=== PATIENT | male | born 1945 | race Caucasian/White ===

== ENCOUNTER 2017-11-15 06:10 | Emergency (ER) | payer BC, MEDICARE ==
[2017-11-15] MEDS: Sodium Chloride 0.9% 1,000 ML IV ONE ×2 (06:50→08:08)
[2017-11-15] MEDS ORDERED: Ketorolac 30 MG/ML SDV IVPUSH ONE (06:53)
[2017-11-15] MEDS ORDERED: Ondansetron 4 MG/2 ML SDV IVPUSH ONE (06:54)
[2017-11-15] MEDS ORDERED: Morphine 10 MG/ML Syringe IVPUSH ONE ×2 (06:58→08:53)
[2017-11-15] MEDS: Morphine 10 MG/ML Syringe IVPUSH ONE ×2 (07:20→08:48)
[2017-11-15] MEDS ORDERED: Morphine 2 MG/ML Syringe ONE ×4 (07:23→08:42)
[2017-11-15] MEDS: Morphine 2 MG/ML Syringe IVPUSH PRN ×2 (08:28→08:40)
[2017-11-15] MEDS ORDERED: Morphine 10 MG/ML SDV ONE (08:48)
[2017-11-15] MEDS ORDERED: HYDROmorphone 2 MG/ML Syringe IVPUSH ONE (08:56)
[2017-11-15] MEDS ORDERED: Acetaminophen/oxyCODONE 325-5 MG Tab PO ONE (09:22)
[2017-11-15] MEDS ORDERED: Acetaminophen/oxyCODONE 325-5 MG Tab ONE (09:28)
--- NOTE | 2017-11-15 09:45 | CT ---
DATE OF SERVICE: 11/15/17 CLINICAL DATA: flank pain. UNENHANCED ABDOMEN AND PELVIC CT: Multislice acquisition through the abdomen and pelvis without IV or oral contrast was performed. Comparison is made to prior unenhanced abdomen and pelvic CT dated 04/05/11. There are emphysematous changes noted in both lower lungs. There are atelectatic changes in the dependent portion of both lungs. There is a subtle ground glass opacity within the right lung base. Pneumonia/pneumonitis should be considered. No pleural effusions. The heart size is normal. No pericardial effusion. The liver is normal size. There is diffuse fatty infiltration of the liver. No focal hepatic lesions. The gallbladder appears normal. The spleen appears normal. The pancreas appears normal. The right and left adrenals appear normal. There is a 3 mm left ureteral calculi located in the left ureter at the L3 level. There is mild hydronephrosis and hydroureter proximal to it consistent with obstruction. There is also swelling of the left kidney and there is mild perinephric fat stranding on the left most likely related to obstruction. The right kidney and collecting system appears normal. The bladder is partially fluid-filled. It appears normal. No evidence of appendicitis. There is a moderate amount of stool noted throughout the colon. There is a small hiatal hernia. There is a small umbilical hernia containing fat. No free air. No free fluid. No dilated loops of bowel. No adenopathy. No aortic aneurysm. IMPRESSION: A 3 mm left ureteral calculi with obstruction. [id number] [facility] [place]
[2017-11-15 10:04] VITALS: BP 143/66
--- NOTE | 2017-11-16 09:09 | ER ---
HPI: A 72-year-old male, who comes in with his with complaints of left flank and abdominal pain that woke him up about 4 o'clock this morning. He states the pain is severe. He has vomited many times since onset. The patient denies any recent falls or injuries. He has not been sick recently. He states he felt fine yesterday. PAST MEDICAL HISTORY: Includes a history of renal stones 3 to 4 years ago. The patient states the pain was very similar to this. He has not been voiding, so he has not noticed any blood in his urine. OBJECTIVE: GENERAL APPEARANCE: The patient is awake and alert. He is uncomfortable and moving around on the exam table from the pain. VITAL SIGNS: Reviewed. Blood pressure 137/83, pulse is 76, respirations 16, O2 sats are 96%. Physical exam, the patient has significant tenderness involving the left flank and left side of the abdomen from the midback area radiating around almost to the inguinal area. Bowel sounds are present. SKIN: Warm and dry. LUNGS: Clear. CARDIAC: Heart sounds distinct without murmurs. The patient denying any chest pain or shortness of breath. INITIAL DIAGNOSIS: Flank pain, left side. TREATMENT PLAN: An IV was started. The patient was given Toradol 30 mg IV. This took the edge off of his pain, but he was still uncomfortable. This was followed with morphine, starting with 4 mg. We gave 4 mg twice, and this did provide moderate pain control for the patient. He states his pain was at 5 or 6 level, and he was able to relax fairly comfortably at this time. He was also given Zofran 4 mg IV. LABORATORY DATA: Labs done today include a CBC, which is normal. CMP is also unremarkable. Renal CT reveals nonobstructive renal stones measuring 1 to 3 mm, as well as an obstructive left ureter calculus that is 3 to 4 mm in size, that is causing mild left-sided hydronephrosis and hydroureter. DIAGNOSIS: Renal stones. TREATMENT PLAN: The patient's pain kept flaring up. We gave him additional morphine for a total of 16 mg. It did not seem to be really controlling his pain well. We then switched to Dilaudid. He got 2 mg of Dilaudid. This brought his pain down to about a 4, and he was resting quietly again. I did consult with Dr. Gaytan with the following treatment plan. If we can control the patient's pain, we will give this a couple of days to see if he can pass the stone; it is small enough that he should be able to pass it, and he needs to push fluids. At this point, we gave the patient Percocet 5/325, and I monitored him for about an hour at which point, he was resting quietly. He rates his pain about a 2 or 3 at this time and states he feels comfortable. He will be discharged home with more Percocet tablets 5/325. He is to take 1 or 2 tablets every 6 hours as needed. He is to push fluids. An appointment for recheck was set up with him on Monday in the clinic with Dr. Gaytan. I advised patient that if his condition should get worse, he is to come back to the emergency room sooner. The patient has no further questions. CRS/MODL /[id number]
== END 2017-11-15 10:50 | disposition home or self-care (01) ==
LOC: LB.ED 06:10
DX: N13.2 Hydronephrosis with renal and ureteral calculous obstruction (principal)
CPT/HCPCS: 74176; 80053; 85025; 96361; 96374; 96375; 96376; 99283; A9270; J1170; J1885; J2270; J2405; J7030

== ENCOUNTER 2017-12-07 11:39 | Day surgery (SDC) | payer BC, MEDICARE ==
[~2017-12-07 11:39] MED LIST: Metoclopramide 10 MG/2 ML SDV IV PRN; Sodium Chloride 0.9% 1,000 ML IV SCH; Sodium Chloride 0.9% 10 ML Syringe FLUSH PRN
[2017-12-07] MEDS ORDERED: Glycopyrrolate 0.2 MG/ML 2 ML SDV ONE (14:10)
[2017-12-07] MEDS ORDERED: Midazolam 1 MG/ML 5 ML SDV ONE (14:10)
[2017-12-07] MEDS ORDERED: Propofol 1,000 MG/100 ML SDV ONE (14:10)
[2017-12-07 17:03] VITALS: BP 146/66
--- NOTE | 2017-12-07 20:54 | OR ---
DATE OF OPERATION: 12/07/2017 PREOPERATIVE DIAGNOSIS: Screening colonoscopy. POSTOPERATIVE DIAGNOSIS: Screening colonoscopy. PROCEDURE: Colonoscopy with polypectomy. ANESTHESIA: MAC. ESTIMATED BLOOD LOSS: Minimal. COMPLICATIONS: None. INDICATIONS FOR THE PROCEDURE: The patient is a 72-year-old male, here today for a screening colonoscopy. Last colonoscopy was about 10 years ago, normal per patient. Denies any change in bowel habits since that time. DESCRIPTION OF PROCEDURE: Informed consent was obtained from the patient. The patient was taken to the operating room and placed on the table in left lateral decubitus position. Monitored anesthesia care was administered. Digital rectal exam was performed and was normal. Colonoscope was then advanced through the anus and directed toward the cecum. Cecum was identified by appendiceal orifice as well as ileocecal valve. Colonoscope was then slowly withdrawn. The patient did have a small sessile polyp in the ascending colon, this was removed with hot biopsy polypectomy. Remainder of the colon was unremarkable. No additional polyps. No masses. No areas of ischemia or inflammation. No AV malformations. Retroflexion was performed in the rectum which was also unremarkable. Colonoscope was then withdrawn. FINDINGS: Ascending colon polyp, otherwise normal. RECOMMENDATIONS: We will follow up on pathology results. Otherwise, would recommend repeat screening colonoscopy in 5 years due to finding of polyp. TOMASZ/ELEANOR /[id number]
== END 2017-12-07 15:25 | disposition home or self-care (01) ==
LOC: LB.SDS 11:39
PROVIDERS: ATTEND Surgery
DX: Z12.11 Encounter for screening for malignant neoplasm of colon (principal); D12.2 Benign neoplasm of ascending colon
CPT/HCPCS: 88305; J2250; J2704; J3490; J7030

== ENCOUNTER 2019-12-16 12:22 | Emergency (ER) | payer BC, OTHER ==
[2019-12-16] MEDS: Nitroglycerin 0.4 MG Tab.SL SL PRN ×3 (13:14→13:30)
[2019-12-16] MEDS ORDERED: Aspirin 81 MG Tab.Chew PO ONE (13:15)
[2019-12-16] MEDS ORDERED: Sodium Chloride 0.9% 10 ML Syringe FLUSH PRN (13:15)
[2019-12-16] MEDS: Morphine 4 MG/ML VIAL IVPUSH ONE ×2 (13:32→13:53)
[2019-12-16] MEDS: Morphine 10 MG/ML SDV ONE ×2 (13:32→14:34)
[2019-12-16] MEDS ORDERED: Heparin Sodium 5,000 UNITS/0.5 ML Syringe IVPUSH ONE (13:47)
[2019-12-16] MEDS ORDERED: Nitroglycerin/D5W 25 MG/250 ML BOTTLE IV SCH (14:00)
[2019-12-16] MEDS ORDERED: Heparin Sodium/D5W 25,000 UNITS/500 ML BAG IV SCH (14:00)
[2019-12-16 14:15] VITALS: PULSE 66
--- NOTE | 2019-12-16 14:28 | EDM.PDOC ---
ED HPI GENERAL MEDICAL PROBLEM - General Chief Complaint: Chest Pain Stated Complaint: LEFT CHEST PAIN Time Seen by Provider: 12/16/19 13:11 Source of Information: Reports: Patient History Limitations: Reports: No Limitations - History of Present Illness INITIAL COMMENTS - FREE TEXT/NARRATIVE: patient developer left sided chest pain at around 1200 today after moving bags of salt. The pain has been continous in his left chest. THe pain radiates down his left side, ribs, back, neck. The pain is reproducable with palpation to left side of body. PMH HTN. Onset: Today Onset Date: 12/16/19 Onset Time: 12:00 Location: Reports: Chest, Radiates to (left side, ribs, back, neck) Quality: Reports: Ache, Sharp, Stabbing Severity: Moderate Improves with: Reports: None Worsens with: Reports: None Associated Symptoms: Reports: Diaphoresis - Related Data Allergies Allergy/AdvReac Type Severity Reaction Status Date / Time No Known Allergies Allergy Verified 12/07/17 12:01 Home Meds: Home Meds Aspirin 81 mg PO DAILY 04/02/15 [History] Calcium Carbonate [Calcium] 500 mg PO DAILY 04/02/15 [History] Multivitamin [Multivitamins] 1 each PO DAILY 04/02/15 [History] lisinopriL [Prinivil] 10 mg PO DAILY 04/02/15 [History] Past Medical History Cardiovascular History: Reports: Hypertension Genitourinary History: Reports: Renal Calculus, Other (See Below) Other Genitourinary History: past hx kidney stones Musculoskeletal History: Reports: Arthritis, Other (See Below) Other Musculoskeletal History: Neck FX - Infectious Disease History Infectious Disease History: Reports: Chicken Pox, Mumps - Past Surgical History Male Surgical History: Reports: None Musculoskeletal Surgical History: Reports: Knee Replacement Other Musculoskeletal Surgeries/Procedures:: broken neck Social & Family History - Family History Family Medical History: Noncontributory - Caffeine Use Caffeine Use: Reports: Coffee Caffeine Use Comment: 10-12 CUPS COFFEE DAILY ED ROS GENERAL - Review of Systems Review Of Systems: See Below Constitutional: Reports: No Symptoms HEENT: Reports: No Symptoms Respiratory: Reports: No Symptoms Cardiovascular: Reports: Chest Pain. Denies: Blood Pressure Problem, Edema, Orthopnea Endocrine: Reports: No Symptoms GI/Abdominal: Reports: No Symptoms : Reports: No Symptoms Musculoskeletal: Reports: Shoulder Pain, Back Pain Skin: Reports: No Symptoms Neurological: Reports: No Symptoms Psychiatric: Reports: Anxiety Hematologic/Lymphatic: Reports: No Symptoms Immunologic: Reports: No Symptoms ED EXAM, GENERAL - Physical Exam Exam: See Below Exam Limited By: No Limitations General Appearance: Alert, Anxious Ears: Normal External Exam Nose: Normal Inspection Throat/Mouth: Normal Inspection, Normal Voice, No Airway Compromise Head: Atraumatic Neck: Normal Inspection, Other (pain with touching left side) Respiratory/Chest: No Respiratory Distress, Lungs Clear, Normal Breath Sounds Cardiovascular: Normal Peripheral Pulses, Regular Rate, Rhythm, No Edema, No JVD, No Murmur Peripheral Pulses: 3+: Carotid (L), Carotid (R), Radial (L), Radial (R), Dorsalis Pedis (L), Dorsalis Pedis (R) GI/Abdominal: Normal Bowel Sounds, Soft Extremities: Normal Inspection, Normal Capillary Refill, Arm Pain (left arm pain) Neurological: Alert, Oriented, Normal Cognition, No Motor/Sensory Deficits Psychiatric: Normal Affect, Normal Mood Skin Exam: Warm, Intact, Diaphoretic Course - Vital Signs Last Recorded V/S: Last Vital Signs Temp 99.4 F 12/16/19 13:12 Pulse 66 12/16/19 14:00 Resp 16 12/16/19 14:00 BP 120/58 L 12/16/19 14:00 Pulse Ox 100 12/16/19 14:00 - Orders/Labs/Meds Orders: Active Orders 24 hr Category Date Time Status Cardiac Monitoring [RC] .As Directed Care 12/16/19 13:16 Active EKG Documentation Completion [RC] ASDIRECTED Care 12/16/19 13:17 Active EKG Documentation Completion [RC] ASDIRECTED Care 12/16/19 14:18 Active Chest 1V Frontal [CR] Stat Exams 12/16/19 13:17 Taken INR,PT,PROTHROMBIN TIME [COAG] Stat Lab 12/16/19 13:49 Ordered PTT,PARTIAL THROMBOPLSTIN TIME [COAG] Stat Lab 12/16/19 13:49 Ordered Heparin Sodium/D5W [Heparin 25,000 Units in D5W 500 ML] Med 12/16/19 14:00 Active 25,000 units in 500 ml IV TITRATE Nitroglycerin [Nitrostat] Med 12/16/19 13:15 Active 0.4 mg SL Q5M PRN Nitroglycerin/D5W [Nitroglycerin 25 MG/D5W 250 ML] Med 12/16/19 14:00 Active 25 mg in 250 ml IV TITRATE Sodium Chloride 0.9% [Saline Flush] Med 12/16/19 13:15 Active 10 ml FLUSH ASDIRECTED PRN Peripheral IV Insertion Adult [OM.PC] Stat Oth 12/16/19 13:15 Ordered EKG 12 Lead [EK] Routine Ther 12/16/19 14:18 Ordered Medication Orders Heparin Sodium/Dextrose (Heparin 25,000 Units In D5w 500 Ml) 25,000 units in 500 mls @ 10.32 mls/hr IV TITRATE OSVALDO; Protocol Nitroglycerin/Dextrose (Nitroglycerin 25 Mg/D5w 250 Ml) 25 mg in 250 mls @ 3 mls/hr IV TITRATE OSVALDO; Protocol Nitroglycerin (Nitrostat) 0.4 mg SL Q5M PRN PRN Reason: Chest Pain Stop: 12/17/19 13:16 Sodium Chloride (Saline Flush) 10 ml FLUSH ASDIRECTED PRN PRN Reason: Keep Vein Open Labs: Laboratory Tests 12/16/19 12/16/19 12/16/19 Range/Units 13:22 13:22 13:40 WBC 8.3 (4.0-11.0) K/uL RBC 5.09 (4.50-6.50) M/uL Hgb 15.2 (13.0-18.0) g/dL Hct 44.0 (40.0-54.0) % MCV 86 (76-96) fL MCH 29.9 (27.0-32.0) pg MCHC 34.5 (31.0-35.0) g/dL RDW 13.4 (11.0-16.0) % Plt Count 234 (150-400) K/uL MPV 9.7 (6.0-10.0) fL Neut % (Auto) 45.5 (45.0-70.0) % Lymph % (Auto) 44.7 H (20.0-40.0) % [place] % (Auto) 6.1 (3.0-10.0) % Eos % (Auto) 3.1 (1.0-5.0) % Baso % (Auto) 0.6 H (0.0-0.5) % Neut # (Auto) 3.79 (2.00-7.50) K/uL Lymph # (Auto) 3.73 (1.50-4.00) K/uL [place] # (Auto) 0.51 (0.20-0.80) K/uL Eos # (Auto) 0.26 (0.04-0.40) K/uL Baso # (Auto) 0.05 (0.02-0.10) K/uL Sodium 141 (136-145) mmol/L Potassium 4.0 (3.5-5.1) mmol/L Chloride 105 (98-107) mmol/L Carbon Dioxide 25.0 (21.0-32.0) mmol/L Anion Gap 15.0 (5.0-15.0) mmol/L BUN 15 (8-26) mg/dL Creatinine 0.99 (0.70-1.30) mg/dL Est Cr Clr Drug Dosing TNP Estimated GFR (MDRD) > 60 (>60) MLS/MIN BUN/Creatinine Ratio 15.2 (6-25) Glucose 144 H (74-100) mg/dL Calcium 8.9 (8.5-10.1) mg/dL Total Bilirubin 0.3 (0.0-1.0) mg/dL AST 20 (15-37) U/L ALT 40 (12-78) U/L Alkaline Phosphatase 81 (46-116) U/L Troponin I < 0.017 (0.000-0.060) ng/mL Total Protein 7.6 (6.4-8.2) g/dL Albumin 4.3 (3.4-5.0) g/dL Globulin 3.3 (2.2-4.2) g/dL Albumin/Globulin Ratio 1.3 (0.8-2.0) COVID-19 (FAITH) Negative Meds: Medications Generic Name Dose Route Start Last Admin Trade Name Freq PRN Reason Stop Dose Admin Heparin Sodium/Dextrose 25,000 units in 500 mls @ 10.32 mls/hr 12/16/19 14:00 Heparin 25,000 Units In D5w 500 Ml IV TITRATE OSVALDO Protocol 6 UNITS/KG/HR Nitroglycerin/Dextrose 25 mg in 250 mls @ 3 mls/hr 12/16/19 14:00 Nitroglycerin 25 Mg/D5w 250 Ml IV TITRATE OSVALDO Protocol 5 MCG/MIN Nitroglycerin 0.4 mg 12/16/19 13:15 Nitrostat SL 12/17/19 13:16 Q5M PRN Chest Pain Sodium Chloride 10 ml 12/16/19 13:15 Saline Flush FLUSH ASDIRECTED PRN Keep Vein Open Discontinued Medications Generic Name Dose Route Start Last Admin Trade Name Freq PRN Reason Stop Dose Admin Aspirin 324 mg 12/16/19 13:15 Aspirin PO 12/16/19 13:16 ONETIME ONE Heparin Sodium (Porcine) 4,000 units 12/16/19 13:47 Heparin Sodium IVPUSH 12/16/19 13:48 ONETIME ONE Morphine Sulfate Confirm 12/16/19 13:34 Morphine Administered 12/16/19 13:35 Dose 10 mg .ROUTE .STK-MED ONE Morphine Sulfate 4 mg 12/16/19 14:18 Morphine IVPUSH 12/16/19 14:19 ONETIME ONE Departure - Departure Time of Disposition: 14:34 Disposition: DC/[facility]fer to [facility] 02 Reason for Transfer *Q: Primary PCI Indicated Condition: Fair Clinical Impression: Acute coronary syndrome Chest pain Qualifiers: Chest pain type: unspecified Qualified Code(s): R07.9 - Chest pain, unspecified Instructions: Nonspecific Chest Pain, Adult Referrals: PCP,None [Primary Care Provider] - Forms: ED Department Discharge, [facility] Sepsis Event Note (ED) - Focused Exam Vital Signs: Vital Signs Temp Pulse Resp BP Pulse Ox 12/16/19 14:00 66 16 120/58 L 100 12/16/19 13:45 72 18 110/63 100 12/16/19 13:40 73 22 H 128/70 98 12/16/19 13:30 83 20 116/57 L 96 12/16/19 13:25 97 16 114/53 L 97 12/16/19 13:20 76 16 129/60 96 12/16/19 13:16 70 18 138/71 99 12/16/19 13:12 99.4 F 87 20 129/102 H 97 - My Orders Last 24 Hours: My Active Orders 12/16/19 13:15 Nitroglycerin [Nitrostat] 0.4 mg SL Q5M PRN Sodium Chloride 0.9% [Saline Flush] 10 ml FLUSH ASDIRECTED PRN Peripheral IV Insertion Adult [OM.PC] Stat 12/16/19 13:16 Cardiac Monitoring [RC] .As Directed 12/16/19 13:17 EKG Documentation Completion [RC] ASDIRECTED Chest 1V Frontal [CR] Stat 12/16/19 13:49 INR,PT,PROTHROMBIN TIME [COAG] Stat PTT,PARTIAL THROMBOPLSTIN TIME [COAG] Stat 12/16/19 14:00 Heparin Sodium/D5W [Heparin 25,000 Units in D5W 500 ML] 25,000 units in 500 ml IV TITRATE Nitroglycerin/D5W [Nitroglycerin 25 MG/D5W 250 ML] 25 mg in 250 ml IV TITRATE 12/16/19 14:18 EKG Documentation Completion [RC] ASDIRECTED EKG 12 Lead [EK] Routine - Assessment/Plan Last 24 Hours: My Active Orders 12/16/19 13:15 Nitroglycerin [Nitrostat] 0.4 mg SL Q5M PRN Sodium Chloride 0.9% [Saline Flush] 10 ml FLUSH ASDIRECTED PRN Peripheral IV Insertion Adult [OM.PC] Stat 12/16/19 13:16 Cardiac Monitoring [RC] .As Directed 12/16/19 13:17 EKG Documentation Completion [RC] ASDIRECTED Chest 1V Frontal [CR] Stat 12/16/19 13:49 INR,PT,PROTHROMBIN TIME [COAG] Stat PTT,PARTIAL THROMBOPLSTIN TIME [COAG] Stat 12/16/19 14:00 Heparin Sodium/D5W [Heparin 25,000 Units in D5W 500 ML] 25,000 units in 500 ml IV TITRATE Nitroglycerin/D5W [Nitroglycerin 25 MG/D5W 250 ML] 25 mg in 250 ml IV TITRATE 12/16/19 14:18 EKG Documentation Completion [RC] ASDIRECTED EKG 12 Lead [EK] Routine Plan: Spoke with Dr. Magaña of Cardiology in [place], he requests heparin and NTG drip to be started prior to departure. He would like to have the patient evaluated in the ED. Spoke with Dr. Murdock in the ED, he will accept the patient, he is aware of air transport.
[2019-12-16 14:31] VITALS: BP 116/57
--- NOTE | 2019-12-16 14:40 | CR ---
DATE OF SERVICE: 12/16/2019 CLINICAL DATA: Chest pain AP chest: Comparison is made to a prior exam dated 02 April 2015. The heart size is normal. There is a persistent linear density in the left lung base consistent with linear atelectasis or fibrosis. The lungs are otherwise clear. No pneumothorax. No pleural effusions. There is degenerative disc disease throughout the thoracic spine. No evidence of acute intrathoracic disease. MTDD
== END 2019-12-16 14:40 ==
LOC: LB.ED 12:22
DX: I24.9 Acute ischemic heart disease, unspecified (principal); I10 Essential (primary) hypertension; M19.90 Unspecified osteoarthritis, unspecified site; Z79.82 Long term (current) use of aspirin; Z79.899 Other long term (current) drug therapy; Z20.828 Contact with and (suspected) exposure to other viral communicable diseases
CPT/HCPCS: 36415; 71045; 80053; 84484; 85025; 85610; 85730; 87635; 93005; 96365; 96375; 99285; A9270; J1644; J2270; J3490; U0002

== ENCOUNTER 2023-06-16 14:53 | Emergency (ER) | payer BC, MEDICARE ==
[2023-06-16 15:31] VITALS: BP 147/80; PULSE 80
== END 2023-06-16 16:52 | disposition home or self-care (01) ==
LOC: LB.ED 14:53
DX: S09.93XA Unspecified injury of face, initial encounter (principal); I10 Essential (primary) hypertension; W50.0XXA Accidental hit or strike by another person, initial encounter; Y04.2XXA Assault by strike against or bumped into by another person, initial encounter; Z79.82 Long term (current) use of aspirin; Z79.899 Other long term (current) drug therapy
CPT/HCPCS: 70450; 99284